=== PATIENT | female | born 1970 | race Caucasian/White ===

== ENCOUNTER 2019-02-26 05:43 | Inpatient (IN) | payer OTHER ==
[~2019-02-26] VITALS: Ht 157.5 cm; Wt 83.3 kg
[~2019-02-26 05:43] MED LIST: ALBU8HFA IH; ASPI-556 PO; ATOR40TA28 PO; AZIT250T9 PO; BUME1TAB17 PO; BUSP10TA23 PO; CARV3 PO; CEPH-582 PO; INSLAN SQ; LEVO200 PO; METF-960 PO; MOME13HF IH; OMEP20 PO; PRED10TA3 PO; PRED20TA3 PO; PRED5TAB PO; UMEC62.5 IH
[2019-02-26 06:05] LABS: GLUCOSE,POINT OF CARE 293 MG/DL (70-110)
[2019-02-26 07:11] LABS: BASOPHILS % (AUTO) 1.5 % (0.0-2.0); EOSINOPHILS % (AUTO) 1.5 % (1.0-6.0); HEMATOCRIT 41.8 % (36-46); HEMOGLOBIN 13.5 g/dL (12.0-16.0); LYMPHOCYTES # (AUTO) 1.5 K/uL (1.0-4.8); LYMPHOCYTES % (AUTO) 25.2 % (22.0-44.0); MEAN CORPUSCULAR HEMOGLOBIN 26.3 pg (26.0-34.0); MEAN CORPUSCULAR HGB CONC 32.2 G/dL (31.0-37.0); MEAN CORPUSCULAR VOLUME 82 fL (80-100); MONOCYTES # (AUTO) 0.6 K/uL (0.1-1.0); MONOCYTES % (AUTO) 9.2 % (2.0-9.0); NEUTROPHILS # (AUTO) 3.8 K/uL (1.8-7.7); NEUTROPHILS % (AUTO) 62.6 % (40.0-70.0); PLATELET COUNT (AUTO) 260 K/uL (150-450); RED BLOOD CELL COUNT(AUTO) 5.13 MIL/uL (4.00-5.20); RED CELL DISTRIBUTION WIDTH 17.3 % (11.5-14.5)
[2019-02-26] MEDS ORDERED: FUROSEMIDE 40 MG/4 ML VIAL IVP ONE (07:45)
[2019-02-26 07:49] LABS: CALCIUM, TOTAL 7.7 mg/dL (8.8-10.5); CREATININE 1.24 mg/dL (0.60-1.30); POTASSIUM 4.8 mmol/L (3.5-5.1)
[2019-02-26 07:53] LABS: ALBUMIN 3.5 g/dL (3.4-5.0); TOTAL PROTEIN, SERUM 7.6 g/dL (6.4-8.2)
[2019-02-26] MEDS: DOCUSATE SODIUM 100 MG CAPSULE PO SCH ×2 (08:43→21:00)
[2019-02-26] MEDS: FAMOTIDINE 20 MG TABLET PO SCH (08:43)
[2019-02-26] MEDS ORDERED: MAGNESIUM HYDROXIDE SUSPENSION 30 ML UDCUP PO PRN (08:45)
[2019-02-26] MEDS ORDERED: ACETAMINOPHEN 325 MG TABLET PO PRN ×2 (08:45)
[2019-02-26] MEDS ORDERED: ONDANSETRON HCL 4 MG/2 ML VIAL IVP PRN (08:45)
[2019-02-26] MEDS ORDERED: ALBUTEROL SULFATE 2.5 MG/0.5 ML NEB SOLUTION NEB PRN (08:45)
[2019-02-26 08:59] LABS: GLUCOSE,POINT OF CARE 299 MG/DL (70-110)
[2019-02-26] MEDS ORDERED: DEXTROSE 50%-WATER 25 GM/50 ML SYRINGE IVP PRN (09:30)
[2019-02-26 10:42] LABS: GLUCOSE,POINT OF CARE 292 MG/DL (70-110)
[2019-02-26 11:39] VITALS: BP 133/94
[2019-02-26] MEDS ORDERED: LORazepam 2 MG TABLET PO PRN (12:30)
[2019-02-26] MEDS: CARVEDILOL 6.25 MG TABLET PO SCH ×2 (12:40→21:00)
[2019-02-26] MEDS: ASPIRIN 81 MG CHEWABLE TABLET PO SCH (12:40)
[2019-02-26] MEDS: INSULIN LISPRO 100 UNITS/ML SQ PRN (12:41)
[2019-02-26 15:51] VITALS: BP 105/50
[2019-02-26] MEDS: HEPARIN SODIUM,PORCINE 5,000 UNITS/ML VIAL SQ SCH (16:54)
[2019-02-26] MEDS ORDERED: FLUMAZENIL 0.1 MG/ML 5 ML VIAL IVP ONE (18:30)
[2019-02-26] MEDS ORDERED: FLUMAZENIL 0.1 MG/ML 5 ML VIAL IVP PRN (18:45)
[2019-02-26 20:01] VITALS: BP 123/80
[2019-02-26 20:05] LABS: GLUCOMETER DEV NAME(LOC) 5N.1; GLUCOSE,POINT OF CARE 161 MG/DL (70-110)
[2019-02-26 20:05] LABS: GLUCOMETER DEV NAME(LOC) 5N.1; GLUCOSE,POINT OF CARE 293 MG/DL (70-110)
[2019-02-26] MEDS: INSULIN GLARGINE,HUM.REC.ANLOG 100 UNITS/ML SQ SCH (21:00)
[2019-02-26 21:44] LABS: GLUCOMETER DEV NAME(LOC) 5N.1; GLUCOSE,POINT OF CARE 214 MG/DL (70-110)
[2019-02-26 23:10] VITALS: BP 107/77
[2019-02-26 23:57] VITALS: BP 137/75
[2019-02-27] VITALS (11 sets, daily range): BP systolic 88–152; BP diastolic 40–82
[2019-02-27 01:25] LABS: AMPHET/METH SCREEN,URINE POSITIVE (NEGATIVE); BARBITURATE SCREEN, URINE NEGATIVE (NEGATIVE); BENZODIAZEPINES SCREEN,URINE NEGATIVE (NEGATIVE); CANNABINOID SCREEN,URINE NEGATIVE (NEGATIVE); COCAINE SCREEN,URINE NEGATIVE (NEGATIVE); METHADONE SCREEN, URINE NEGATIVE (NEGATIVE); OPIATE SCREEN,URINE NEGATIVE (NEGATIVE); PHENCYCLIDINE SCREEN,URINE NEGATIVE (NEGATIVE)
[2019-02-27] MEDS: INSULIN LISPRO 100 UNITS/ML SQ PRN ×4 (05:52→20:29)
[2019-02-27 06:05] LABS: BASOPHILS % (AUTO) 1.4 % (0.0-2.0); EOSINOPHILS % (AUTO) 0.6 % (1.0-6.0); HEMATOCRIT 42.1 % (36-46); HEMOGLOBIN 13.7 g/dL (12.0-16.0); LYMPHOCYTES # (AUTO) 1.3 K/uL (1.0-4.8); LYMPHOCYTES % (AUTO) 18.3 % (22.0-44.0); MEAN CORPUSCULAR HEMOGLOBIN 26.7 pg (26.0-34.0); MEAN CORPUSCULAR HGB CONC 32.6 G/dL (31.0-37.0); MEAN CORPUSCULAR VOLUME 82 fL (80-100); MONOCYTES # (AUTO) 0.5 K/uL (0.1-1.0); MONOCYTES % (AUTO) 7.1 % (2.0-9.0); NEUTROPHILS # (AUTO) 5.1 K/uL (1.8-7.7); NEUTROPHILS % (AUTO) 72.6 % (40.0-70.0); PLATELET COUNT (AUTO) 262 K/uL (150-450); RED BLOOD CELL COUNT(AUTO) 5.14 MIL/uL (4.00-5.20); RED CELL DISTRIBUTION WIDTH 17.7 % (11.5-14.5)
[2019-02-27 06:14] LABS: ALBUMIN 3.3 g/dL (3.4-5.0); BILIRUBIN,TOTAL 1.7 mg/dL (0.1-1.0); CALCIUM, TOTAL 8.7 mg/dL (8.8-10.5); CREATININE 1.41 mg/dL (0.60-1.30); MAGNESIUM 1.5 mg/dL (1.80-2.40); POTASSIUM 4.2 mmol/L (3.5-5.1); TOTAL PROTEIN, SERUM 7.2 g/dL (6.4-8.2)
[2019-02-27 06:59] LABS: GLUCOMETER DEV NAME(LOC) 5N.1; GLUCOSE,POINT OF CARE 292 MG/DL (70-110)
[2019-02-27] MEDS ORDERED: MAGNESIUM OXIDE 400 MG TABLET PO ONE (08:30)
[2019-02-27] MEDS: DOCUSATE SODIUM 100 MG CAPSULE PO SCH ×2 (09:00→20:29)
[2019-02-27] MEDS: HEPARIN SODIUM,PORCINE 5,000 UNITS/ML VIAL SQ SCH ×4 (09:17→23:36)
[2019-02-27] MEDS: CARVEDILOL 6.25 MG TABLET PO SCH ×2 (09:18→20:29)
[2019-02-27] MEDS: LISINOPRIL 5 MG TABLET PO SCH (09:18)
[2019-02-27] MEDS: FAMOTIDINE 20 MG TABLET PO SCH (09:18)
[2019-02-27] MEDS: ATORVASTATIN CALCIUM 20 MG TABLET PO SCH (09:18)
[2019-02-27] MEDS: ASPIRIN 81 MG CHEWABLE TABLET PO SCH (09:18)
[2019-02-27] MEDS: BUMETANIDE 0.25 MG/ML 4 ML VIAL IVP SCH (09:23)
[2019-02-27 12:29] LABS: GLUCOMETER DEV NAME(LOC) 5N.1; GLUCOSE,POINT OF CARE 248 MG/DL (70-110)
[2019-02-27] MEDS: FUROSEMIDE 20 MG/2 ML VIAL IVP SCH ×2 (13:14→18:09)
[2019-02-27] MEDS: INSULIN GLARGINE,HUM.REC.ANLOG 100 UNITS/ML SQ SCH (20:28)
[2019-02-28] VITALS (10 sets, daily range): BP systolic 108–128; BP diastolic 56–88
[2019-02-28] MEDS: FUROSEMIDE 20 MG/2 ML VIAL IVP SCH ×5 (00:12→22:12)
[2019-02-28] MEDS: INSULIN LISPRO 100 UNITS/ML SQ PRN ×4 (05:50→22:22)
[2019-02-28 06:14] LABS: CALCIUM, TOTAL 8.4 mg/dL (8.8-10.5); CREATININE 1.37 mg/dL (0.60-1.30); MAGNESIUM 1.2 mg/dL (1.80-2.40); POTASSIUM 3.4 mmol/L (3.5-5.1)
[2019-02-28 07:40] LABS: GLUCOMETER DEV NAME(LOC) 5N.1; GLUCOSE,POINT OF CARE 368 MG/DL (70-110)
[2019-02-28 07:40] LABS: GLUCOMETER DEV NAME(LOC) 5N.1; GLUCOSE,POINT OF CARE 245 MG/DL (70-110)
[2019-02-28 07:40] LABS: GLUCOMETER DEV NAME(LOC) 5N.1; GLUCOSE,POINT OF CARE 319 MG/DL (70-110)
[2019-02-28] MEDS ORDERED: MAGNESIUM SULFATE 4 GM/WATER 100 ML IV PRN (08:30)
[2019-02-28] MEDS ORDERED: MAGNESIUM OXIDE 400 MG TABLET PO PRN (08:30)
[2019-02-28] MEDS ORDERED: MAGNESIUM SULFATE 2 GM/WATER 50 ML IV PRN (08:30)
[2019-02-28] MEDS ORDERED: MAGNESIUM SULFATE 3 GM in DEXTROSE 5%-WATER 100 ML IV ONE (09:00)
[2019-02-28] MEDS: HEPARIN SODIUM,PORCINE 5,000 UNITS/ML VIAL SQ SCH ×3 (09:02→22:12)
[2019-02-28] MEDS: ATORVASTATIN CALCIUM 20 MG TABLET PO SCH (09:02)
[2019-02-28] MEDS: LISINOPRIL 5 MG TABLET PO SCH (09:02)
[2019-02-28] MEDS: CARVEDILOL 6.25 MG TABLET PO SCH ×2 (09:03→20:47)
[2019-02-28] MEDS: ASPIRIN 81 MG CHEWABLE TABLET PO SCH (09:03)
[2019-02-28] MEDS: FAMOTIDINE 20 MG TABLET PO SCH (09:07)
[2019-02-28] MEDS: DOCUSATE SODIUM 100 MG CAPSULE PO SCH ×2 (09:07→20:48)
[2019-02-28] MEDS: BUMETANIDE 0.25 MG/ML 4 ML VIAL IVP SCH (09:07)
[2019-02-28] MEDS ORDERED: SODIUM CHLORIDE 0.9% 250 ML IV ONE (10:17)
[2019-02-28 12:39] LABS: GLUCOMETER DEV NAME(LOC) 5N.1; GLUCOSE,POINT OF CARE 345 MG/DL (70-110)
[2019-02-28] MEDS: POTASSIUM CHL 10 MEQ/WATER 50 ML IV SCH ×2 (15:38→17:35)
[2019-02-28] MEDS ORDERED: INSULIN GLARGINE,HUM.REC.ANLOG 100 UNITS/ML SQ SCH (21:00)
[2019-03-01 02:14] LABS: GLUCOMETER DEV NAME(LOC) 5N.1; GLUCOSE,POINT OF CARE 338 MG/DL (70-110)
[2019-03-01 04:39] VITALS: BP 132/98
[2019-03-01 06:03] LABS: BASOPHILS % (AUTO) 0.8 % (0.0-2.0); HEMATOCRIT 41.2 % (36-46); HEMOGLOBIN 13.2 g/dL (12.0-16.0); LYMPHOCYTES # (AUTO) 1.1 K/uL (1.0-4.8); LYMPHOCYTES % (AUTO) 25.9 % (22.0-44.0); MEAN CORPUSCULAR HEMOGLOBIN 26.4 pg (26.0-34.0); MEAN CORPUSCULAR HGB CONC 31.9 G/dL (31.0-37.0); MEAN CORPUSCULAR VOLUME 83 fL (80-100); MONOCYTES # (AUTO) 0.6 K/uL (0.1-1.0); MONOCYTES % (AUTO) 14.9 % (2.0-9.0); NEUTROPHILS # (AUTO) 2.4 K/uL (1.8-7.7); NEUTROPHILS % (AUTO) 57.4 % (40.0-70.0); PLATELET COUNT (AUTO) 213 K/uL (150-450); RED BLOOD CELL COUNT(AUTO) 4.98 MIL/uL (4.00-5.20); RED CELL DISTRIBUTION WIDTH 17.2 % (11.5-14.5)
[2019-03-01] MEDS: FUROSEMIDE 20 MG/2 ML VIAL IVP SCH ×2 (06:10→12:31)
[2019-03-01] MEDS: INSULIN LISPRO 100 UNITS/ML SQ PRN ×2 (06:14→12:35)
[2019-03-01 06:18] LABS: ALANINE AMINOTRANSFERASE 28 U/L (12-78); ALBUMIN 2.9 g/dL (3.4-5.0); ALKALINE PHOSPHATASE 166 U/L (46-116); ANION GAP 7 mmol/L (8-16); ASPARTATE AMINOTRANSFERASE 30 U/L (15-37); BILIRUBIN,TOTAL 0.7 mg/dL (0.1-1.0); CALCIUM, TOTAL 8.1 mg/dL (8.8-10.5); CARBON DIOXIDE 30 mmol/L (22-29); CHLORIDE 97 mmol/L (98-107); CREATININE 0.98 mg/dL (0.60-1.30); GLOMERULAR FILTR. RATE CALC > 60 mL/min (>60); GLUCOSE,RANDOM 371 mg/dL (70-110); POTASSIUM 3.1 mmol/L (3.5-5.1); SODIUM SERUM 134 mmol/L (136-145); TOTAL PROTEIN, SERUM 6.6 g/dL (6.4-8.2); UREA NITROGEN, BLOOD 22 mg/dL (7-18)
[2019-03-01 06:44] LABS: GLUCOMETER DEV NAME(LOC) 5N.1; GLUCOSE,POINT OF CARE 372 MG/DL (70-110)
[2019-03-01 07:30] VITALS: BP 115/75
[2019-03-01] MEDS ORDERED: POTASSIUM CHL 10 MEQ/WATER 50 ML IV PRN (07:30)
[2019-03-01] MEDS: HEPARIN SODIUM,PORCINE 5,000 UNITS/ML VIAL SQ SCH (08:00)
[2019-03-01] MEDS: ASPIRIN 81 MG CHEWABLE TABLET PO SCH (08:49)
[2019-03-01] MEDS: BUMETANIDE 0.25 MG/ML 4 ML VIAL IVP SCH (08:49)
[2019-03-01] MEDS: ATORVASTATIN CALCIUM 20 MG TABLET PO SCH (08:50)
[2019-03-01] MEDS: CARVEDILOL 6.25 MG TABLET PO SCH (08:50)
[2019-03-01] MEDS: POTASSIUM CHLORIDE 20 MEQ ER TABLET PO PRN ×2 (08:51→15:11)
[2019-03-01] MEDS ORDERED: SODIUM CHLORIDE 0.9% 250 ML IV ONE (09:19)
[2019-03-01] MEDS: LISINOPRIL 5 MG TABLET PO SCH (09:22)
[2019-03-01] MEDS: DOCUSATE SODIUM 100 MG CAPSULE PO SCH (09:22)
[2019-03-01] MEDS: FAMOTIDINE 20 MG TABLET PO SCH (09:22)
[2019-03-01 10:34] LABS: GLUCOMETER DEV NAME(LOC) 5S.3; GLUCOSE,POINT OF CARE 382 MG/DL (70-110)
[2019-03-01 11:05] VITALS: BP 116/83
[2019-03-01 11:55] LABS: GLUCOMETER DEV NAME(LOC) 5N.1; GLUCOSE,POINT OF CARE 208 MG/DL (70-110)
[2019-03-01] MEDS ORDERED: LISI-660 PO (13:48)
== END 2019-03-01 16:00 | disposition home or self-care (01) | DRG 194 ==
LOC: EMS 05:43 → 5S 10:01
PROVIDERS: ADMIT Internal Medicine; ATTEND Internal Medicine
PROC: 4B02XTZ Measurement of Cardiac Defibrillator, External Approach (ICD-10-PCS; principal; 2019-02-27)
DX: I13.0 Hypertensive heart and chronic kidney disease with heart failure and stage 1 through stage 4 chronic kidney disease, or unspecified chronic kidney disease (principal); N17.9 Acute kidney failure, unspecified; E11.22 Type 2 diabetes mellitus with diabetic chronic kidney disease; E11.65 Type 2 diabetes mellitus with hyperglycemia; I50.43 Acute on chronic combined systolic (congestive) and diastolic (congestive) heart failure; I42.0 Dilated cardiomyopathy; E83.42 Hypomagnesemia; E87.1 Hypo-osmolality and hyponatremia; E87.6 Hypokalemia; E03.9 Hypothyroidism, unspecified; E78.5 Hyperlipidemia, unspecified; N18.2 Chronic kidney disease, stage 2 (mild); F15.10 Other stimulant abuse, uncomplicated; F41.9 Anxiety disorder, unspecified; D64.9 Anemia, unspecified; E78.00 Pure hypercholesterolemia, unspecified; F32.9 Major depressive disorder, single episode, unspecified; F17.210 Nicotine dependence, cigarettes, uncomplicated; Z91.19 Patient's noncompliance with other medical treatment and regimen; Z88.6 Allergy status to analgesic agent; Z90.49 Acquired absence of other specified parts of digestive tract; Z79.899 Other long term (current) drug therapy; Z79.82 Long term (current) use of aspirin; Z79.4 Long term (current) use of insulin; Z95.0 Presence of cardiac pacemaker; Z79.890 Hormone replacement therapy; Z79.84 Long term (current) use of oral hypoglycemic drugs
CPT/HCPCS: 80307; 83735; 84132; 93005; 93306; 94640; 96374; G0378; J1644; J1815; J1940; J3475; J3480; J3490; J7050; J7060

== ENCOUNTER 2019-03-11 16:11 | Inpatient (IN) | payer OTHER ==
[~2019-03-11] VITALS: Ht 157.5 cm; Wt 81.6 kg
[~2019-03-11 16:11] MED LIST changes: -AZIT250T9 PO; -BUME1TAB17 PO; +BUME1TAB34 PO; -BUSP10TA23 PO; -CEPH-582 PO; +LISI-660 PO; -PRED10TA3 PO; -PRED20TA3 PO; -PRED5TAB PO
[2019-03-11 16:30] LABS: GLUCOSE,POINT OF CARE 434 MG/DL (70-110)
[2019-03-11] MEDS ORDERED: CARV6 PO (17:11)
[2019-03-11] MEDS ORDERED: FUROSEMIDE 40 MG/4 ML VIAL IVP ONE (17:15)
[2019-03-11] MEDS ORDERED: LORazepam 2 MG/ML VIAL IVP ONE (17:15)
[2019-03-11 17:17] LABS: BASOPHILS % (AUTO) 0.5 % (0.0-2.0); EOSINOPHILS % (AUTO) 1.3 % (1.0-6.0); HEMATOCRIT 39.6 % (36-46); HEMOGLOBIN 12.5 g/dL (12.0-16.0); MEAN CORPUSCULAR HEMOGLOBIN 26.1 pg (26.0-34.0); MEAN CORPUSCULAR HGB CONC 31.5 G/dL (31.0-37.0); MEAN CORPUSCULAR VOLUME 83 fL (80-100); MONOCYTES # (AUTO) 0.5 K/uL (0.1-1.0); MONOCYTES % (AUTO) 9.6 % (2.0-9.0); NEUTROPHILS # (AUTO) 3.9 K/uL (1.8-7.7); NEUTROPHILS % (AUTO) 70.6 % (40.0-70.0); PLATELET COUNT (AUTO) 186 K/uL (150-450); RED BLOOD CELL COUNT(AUTO) 4.78 MIL/uL (4.00-5.20); RED CELL DISTRIBUTION WIDTH 17.7 % (11.5-14.5)
[2019-03-11 17:33] LABS: PROTHROMBIN TIME 10.5 SEC (9.4-11.6)
[2019-03-11 17:53] LABS: ALBUMIN 3.3 g/dL (3.4-5.0); BILIRUBIN,TOTAL 0.7 mg/dL (0.1-1.0); CALCIUM, TOTAL 8.9 mg/dL (8.8-10.5); CREATININE 1.39 mg/dL (0.60-1.30); POTASSIUM 3.6 mmol/L (3.5-5.1); TOTAL PROTEIN, SERUM 7.1 g/dL (6.4-8.2)
[2019-03-11] MEDS ORDERED: INSULIN REGULAR, HUMAN 100 UNITS/ML SQ ONE (18:15)
[2019-03-11] MEDS ORDERED: ONDANSETRON HCL 4 MG/2 ML VIAL IVP PRN ×2 (18:45→22:45)
[2019-03-11] MEDS ORDERED: 0.9% SODIUM CHLORIDE 10 ML SYRINGE IVP PRN ×2 (18:45→22:45)
[2019-03-11] MEDS ORDERED: ACETAMINOPHEN 325 MG TABLET PO PRN (18:45)
[2019-03-11 20:17] LABS: APPEARANCE,URINE CLEAR (CLEAR); BILIRUBIN,URINE NEGATIVE (NEGATIVE); GLUCOSE, URINE (UA) 500 mg/dL (NEGATIVE); KETONES,URINE NEGATIVE (NEGATIVE); LEUKOCYTE ESTERASE ,URINE NEGATIVE (NEGATIVE); NITRATE,URINE NEGATIVE (NEGATIVE); OCCULT BLOOD,URINE NEGATIVE (NEGATIVE); PROTEIN,URINE POS 1+ (NEGATIVE); UROBILINOGEN,URINE 0.2 mg/dL (<=1.0)
[2019-03-11 20:32] LABS: AMPHET/METH SCREEN,URINE NEGATIVE (NEGATIVE); BACTERIA,URINE None Seen /HPF (None Seen); BARBITURATE SCREEN, URINE NEGATIVE (NEGATIVE); BENZODIAZEPINES SCREEN,URINE NEGATIVE (NEGATIVE); CANNABINOID SCREEN,URINE NEGATIVE (NEGATIVE); COCAINE SCREEN,URINE NEGATIVE (NEGATIVE); METHADONE SCREEN, URINE NEGATIVE (NEGATIVE); OPIATE SCREEN,URINE NEGATIVE (NEGATIVE); RBC,URINE None Seen /HPF (0-2); SQUAMOUS EPITHELIAL CELL,UR Rare /LPF (None Seen); WBC,URINE None Seen /HPF (0-5)
[2019-03-11 20:36] LABS: PHENCYCLIDINE SCREEN,URINE NEGATIVE (NEGATIVE)
[2019-03-11] MEDS ORDERED: ZOLPIDEM TARTRATE 5 MG TABLET PO PRN (22:45)
[2019-03-11] MEDS ORDERED: GLUCAGON,HUMAN RECOMBINANT 1 MG VIAL IM PRN (22:45)
[2019-03-11] MEDS ORDERED: IPRATROPIUM BROMIDE 0.5 MG/2.5 ML NEB SOLUTION NEB PRN (22:45)
[2019-03-11] MEDS ORDERED: ALBUTEROL SULFATE 2.5 MG/0.5 ML NEB SOLUTION NEB PRN (22:45)
[2019-03-11] MEDS ORDERED: INSULIN LISPRO 100 UNITS/ML SQ PRN (22:45)
[2019-03-11] MEDS ORDERED: DEXTROSE 50%-WATER 25 GM/50 ML SYG IVP PRN (23:00)
[2019-03-12 00:44] VITALS: BP 137/91
[2019-03-12] MEDS: CARVEDILOL 6.25 MG TABLET PO SCH ×3 (01:08→21:04)
[2019-03-12] MEDS: INSULIN GLARGINE,HUM.REC.ANLOG 100 UNITS/ML SQ SCH ×2 (01:13→21:05)
[2019-03-12] MEDS: INSULIN LISPRO 100 UNITS/ML SQ PRN ×5 (01:14→21:05)
[2019-03-12] MEDS: ALBUTEROL SULFATE 2.5 MG/0.5 ML NEB SOLUTION NEB SCH ×4 (02:00→19:45)
[2019-03-12] MEDS: HYDROmorphone 2 MG/ML SYRINGE IVP SCH ×3 (02:00→04:00)
[2019-03-12] MEDS: IPRATROPIUM BROMIDE 0.5 MG/2.5 ML NEB SOLUTION NEB SCH ×4 (02:00→19:45)
[2019-03-12 04:05] VITALS: BP 134/97
[2019-03-12] MEDS ORDERED: PNEUMOCOCCAL VACCINE POLYVALENT 0.5 ML VIAL [PPSV23] IM ONE (05:45)
[2019-03-12 05:47] LABS: BASOPHILS % (AUTO) 0.9 % (0.0-2.0); EOSINOPHILS % (AUTO) 1.7 % (1.0-6.0); HEMATOCRIT 39.9 % (36-46); HEMOGLOBIN 12.8 g/dL (12.0-16.0); LYMPHOCYTES # (AUTO) 1.1 K/uL (1.0-4.8); LYMPHOCYTES % (AUTO) 24.4 % (22.0-44.0); MEAN CORPUSCULAR HEMOGLOBIN 26.5 pg (26.0-34.0); MEAN CORPUSCULAR HGB CONC 32.1 G/dL (31.0-37.0); MEAN CORPUSCULAR VOLUME 83 fL (80-100); MONOCYTES # (AUTO) 0.3 K/uL (0.1-1.0); MONOCYTES % (AUTO) 7.5 % (2.0-9.0); NEUTROPHILS # (AUTO) 2.9 K/uL (1.8-7.7); NEUTROPHILS % (AUTO) 65.5 % (40.0-70.0); PLATELET COUNT (AUTO) 183 K/uL (150-450); RED BLOOD CELL COUNT(AUTO) 4.84 MIL/uL (4.00-5.20); RED CELL DISTRIBUTION WIDTH 17.9 % (11.5-14.5)
[2019-03-12 06:08] LABS: ALBUMIN 3.2 g/dL (3.4-5.0); BILIRUBIN,TOTAL 0.5 mg/dL (0.1-1.0); CALCIUM, TOTAL 8.5 mg/dL (8.8-10.5); CREATININE 1.19 mg/dL (0.60-1.30); MAGNESIUM 1.1 mg/dL (1.80-2.40); POTASSIUM 3.6 mmol/L (3.5-5.1); TOTAL PROTEIN, SERUM 7.2 g/dL (6.4-8.2)
[2019-03-12 06:30] VITALS: BP 119/80
[2019-03-12 07:10] LABS: GLUCOMETER DEV NAME(LOC) 5S.1; GLUCOSE,POINT OF CARE 250 MG/DL (70-110)
[2019-03-12] MEDS: LEVOTHYROXINE SODIUM 200 MCG TABLET PO SCH (07:28)
[2019-03-12 08:14] VITALS: BP 144/78
[2019-03-12] MEDS ORDERED: LORazepam 2 MG TABLET PO PRN (08:30)
[2019-03-12] MEDS ORDERED: MAGNESIUM OXIDE 400 MG TABLET PO PRN (08:30)
[2019-03-12] MEDS ORDERED: MAGNESIUM SULFATE 2 GM/WATER 50 ML IV PRN (08:30)
[2019-03-12] MEDS: MetFORMIN HCL 500 MG TABLET PO SCH ×2 (08:47→17:42)
[2019-03-12] MEDS: LISINOPRIL 5 MG TABLET PO SCH (08:48)
[2019-03-12] MEDS: ASPIRIN 81 MG EC TABLET PO SCH (08:48)
[2019-03-12] MEDS: ATORVASTATIN CALCIUM 40 MG TABLET PO SCH (08:48)
[2019-03-12] MEDS: OMEPRAZOLE 20 MG CAPSULE PO SCH (08:48)
[2019-03-12] MEDS: ENOXAPARIN SODIUM 40 MG/0.4 ML PF SYRINGE SQ SCH (08:49)
[2019-03-12] MEDS: BUMETANIDE 0.25 MG/ML 4 ML VIAL IVP SCH ×3 (08:49→21:04)
[2019-03-12] MEDS ORDERED: PANTOPRAZOLE SODIUM 40 MG DR TABLET PO SCH (09:00)
[2019-03-12 11:26] VITALS: BP 128/87
[2019-03-12 13:44] LABS: GLUCOMETER DEV NAME(LOC) 5S.1; GLUCOSE,POINT OF CARE 258 MG/DL (70-110)
[2019-03-12] MEDS ORDERED: SODIUM CHLORIDE 0.9% 100 ML ONE (16:37)
[2019-03-12] MEDS: MAGNESIUM SULFATE 4 GM/WATER 100 ML IV PRN (16:46)
[2019-03-12 20:24] VITALS: BP 154/87
[2019-03-13] VITALS (7 sets, daily range): BP systolic 98–148; BP diastolic 60–86
[2019-03-13 00:12] LABS: GLUCOMETER DEV NAME(LOC) 5S.1; GLUCOSE,POINT OF CARE 197 MG/DL (70-110)
[2019-03-13] MEDS: ALBUTEROL SULFATE 2.5 MG/0.5 ML NEB SOLUTION NEB SCH ×4 (02:00→19:11)
[2019-03-13] MEDS: IPRATROPIUM BROMIDE 0.5 MG/2.5 ML NEB SOLUTION NEB SCH ×4 (02:00→19:11)
[2019-03-13 05:44] LABS: BASOPHILS % (AUTO) 0.6 % (0.0-2.0); EOSINOPHILS % (AUTO) 1.7 % (1.0-6.0); HEMATOCRIT 39.9 % (36-46); HEMOGLOBIN 12.7 g/dL (12.0-16.0); LYMPHOCYTES # (AUTO) 0.9 K/uL (1.0-4.8); LYMPHOCYTES % (AUTO) 15.5 % (22.0-44.0); MEAN CORPUSCULAR HEMOGLOBIN 26.3 pg (26.0-34.0); MEAN CORPUSCULAR HGB CONC 31.9 G/dL (31.0-37.0); MEAN CORPUSCULAR VOLUME 82 fL (80-100); MONOCYTES # (AUTO) 0.5 K/uL (0.1-1.0); MONOCYTES % (AUTO) 8.4 % (2.0-9.0); NEUTROPHILS # (AUTO) 4.4 K/uL (1.8-7.7); NEUTROPHILS % (AUTO) 73.8 % (40.0-70.0); PLATELET COUNT (AUTO) 198 K/uL (150-450); RED BLOOD CELL COUNT(AUTO) 4.85 MIL/uL (4.00-5.20); RED CELL DISTRIBUTION WIDTH 17.9 % (11.5-14.5)
[2019-03-13 06:03] LABS: CALCIUM, TOTAL 8.5 mg/dL (8.8-10.5); CREATININE 1.07 mg/dL (0.60-1.30); MAGNESIUM 1.5 mg/dL (1.80-2.40); POTASSIUM 3.7 mmol/L (3.5-5.1)
[2019-03-13] MEDS: LEVOTHYROXINE SODIUM 200 MCG TABLET PO SCH (06:42)
[2019-03-13] MEDS: INSULIN LISPRO 100 UNITS/ML SQ PRN ×4 (06:47→21:21)
[2019-03-13 07:54] LABS: GLUCOMETER DEV NAME(LOC) 5S.1; GLUCOSE,POINT OF CARE 159 MG/DL (70-110)
[2019-03-13] MEDS: BUMETANIDE 0.25 MG/ML 4 ML VIAL IVP SCH ×3 (09:32→21:23)
[2019-03-13] MEDS: MetFORMIN HCL 500 MG TABLET PO SCH ×2 (09:34→17:52)
[2019-03-13] MEDS: CARVEDILOL 6.25 MG TABLET PO SCH ×2 (09:35→21:21)
[2019-03-13] MEDS: ATORVASTATIN CALCIUM 40 MG TABLET PO SCH (09:35)
[2019-03-13] MEDS: LISINOPRIL 5 MG TABLET PO SCH (09:35)
[2019-03-13] MEDS: OMEPRAZOLE 20 MG CAPSULE PO SCH (09:35)
[2019-03-13] MEDS: ASPIRIN 81 MG EC TABLET PO SCH (09:35)
[2019-03-13] MEDS: ENOXAPARIN SODIUM 40 MG/0.4 ML PF SYRINGE SQ SCH (09:35)
[2019-03-13 12:39] LABS: GLUCOMETER DEV NAME(LOC) 5S.1; GLUCOSE,POINT OF CARE 160 MG/DL (70-110)
[2019-03-13 14:15] LABS: ABG A-A DIFF O2 27.6 mmHg (10-20.0); ABG CARBOXYHEMOGLOBIN 0.5 % (0.0-1.5); ABG HCO3 24.4 mmol/L (22.0-26.0); ABG METHEMOGLOBIN 0.3 % (0.0-1.5); ABG OXYGEN CONTENT 18.9 mL/dL (15.0-23.0); ABG OXYGEN SATURATION 98.1 % (95.0-98.0); ABG OXYHEMOGLOBIN 97.3 % (94.0-100.0); ABG PCO2 32 mmHg (35-45); ABG PH 7.466 (7.35-7.450); ABG TOTAL HEMOGLOBIN 13.7 G/dL (12.0-18.0); PO2, ARTERIAL BG 105.1 mmHg (88.0-96.0); SOURCE, BLOOD GAS ARTERIAL; TEMPERATURE, FAHRENHEIT, BG 98.6 FAHREN (96.0-98.6)
[2019-03-13 14:16] LABS: O2 DEVICE,BLOOD GAS CANNULA (ROOM AIR); SITE, BLOOD GAS RT RADIAL
[2019-03-13 19:09] LABS: GLUCOMETER DEV NAME(LOC) 5S.1; GLUCOSE,POINT OF CARE 167 MG/DL (70-110)
[2019-03-13] MEDS: INSULIN GLARGINE,HUM.REC.ANLOG 100 UNITS/ML SQ SCH (21:20)
[2019-03-14] VITALS (7 sets, daily range): BP systolic 102–119; BP diastolic 52–76
[2019-03-14] MEDS: ALBUTEROL SULFATE 2.5 MG/0.5 ML NEB SOLUTION NEB SCH ×4 (02:00→19:43)
[2019-03-14] MEDS: IPRATROPIUM BROMIDE 0.5 MG/2.5 ML NEB SOLUTION NEB SCH ×4 (02:00→19:43)
[2019-03-14] MEDS: LEVOTHYROXINE SODIUM 200 MCG TABLET PO SCH (06:26)
[2019-03-14] MEDS: INSULIN LISPRO 100 UNITS/ML SQ PRN ×4 (06:27→21:25)
[2019-03-14 07:45] LABS: GLUCOMETER DEV NAME(LOC) 5S.1; GLUCOSE,POINT OF CARE 238 MG/DL (70-110)
[2019-03-14 07:45] LABS: GLUCOMETER DEV NAME(LOC) 5S.1; GLUCOSE,POINT OF CARE 230 MG/DL (70-110)
[2019-03-14] MEDS: MetFORMIN HCL 500 MG TABLET PO SCH ×2 (09:02→17:42)
[2019-03-14] MEDS: ENOXAPARIN SODIUM 40 MG/0.4 ML PF SYRINGE SQ SCH (09:02)
[2019-03-14] MEDS: BUMETANIDE 0.25 MG/ML 4 ML VIAL IVP SCH ×3 (09:02→20:31)
[2019-03-14] MEDS: ASPIRIN 81 MG EC TABLET PO SCH (09:03)
[2019-03-14] MEDS: ATORVASTATIN CALCIUM 40 MG TABLET PO SCH (09:03)
[2019-03-14] MEDS: OMEPRAZOLE 20 MG CAPSULE PO SCH (09:03)
[2019-03-14] MEDS: CARVEDILOL 6.25 MG TABLET PO SCH ×2 (10:01→20:31)
[2019-03-14] MEDS: LISINOPRIL 5 MG TABLET PO SCH (10:01)
[2019-03-14 11:50] LABS: CALCIUM, TOTAL 8.1 mg/dL (8.8-10.5); CREATININE 1.17 mg/dL (0.60-1.30); MAGNESIUM 1.2 mg/dL (1.80-2.40); POTASSIUM 3.4 mmol/L (3.5-5.1)
[2019-03-14] MEDS: MAGNESIUM SULFATE 4 GM/WATER 100 ML IV PRN (13:15)
[2019-03-14] MEDS ORDERED: POTASSIUM CHLORIDE 20 MEQ ER TABLET PO PRN (15:00)
[2019-03-14 17:54] LABS: GLUCOMETER DEV NAME(LOC) 5S.1; GLUCOSE,POINT OF CARE 170 MG/DL (70-110)
[2019-03-14] MEDS: NEOMYCIN/BACITRACIN/POLYMYXIN B 30 GM OINTMENT TP SCH (20:31)
[2019-03-14] MEDS: INSULIN GLARGINE,HUM.REC.ANLOG 100 UNITS/ML SQ SCH (21:24)
[2019-03-14 23:14] LABS: GLUCOMETER DEV NAME(LOC) 5N.2; GLUCOSE,POINT OF CARE 198 MG/DL (70-110)
[2019-03-15] MEDS: ALBUTEROL SULFATE 2.5 MG/0.5 ML NEB SOLUTION NEB SCH ×4 (01:21→20:10)
[2019-03-15] MEDS: IPRATROPIUM BROMIDE 0.5 MG/2.5 ML NEB SOLUTION NEB SCH ×4 (01:21→20:10)
[2019-03-15 04:36] VITALS: BP 113/73
[2019-03-15] MEDS: LEVOTHYROXINE SODIUM 200 MCG TABLET PO SCH (06:30)
[2019-03-15] MEDS: INSULIN LISPRO 100 UNITS/ML SQ PRN ×2 (06:32→11:46)
[2019-03-15 07:24] LABS: GLUCOMETER DEV NAME(LOC) 5S.1; GLUCOSE,POINT OF CARE 144 MG/DL (70-110)
[2019-03-15 07:39] VITALS: BP 113/78
[2019-03-15] MEDS: MetFORMIN HCL 500 MG TABLET PO SCH ×2 (08:35→18:05)
[2019-03-15] MEDS: ASPIRIN 81 MG EC TABLET PO SCH (08:35)
[2019-03-15] MEDS: ATORVASTATIN CALCIUM 40 MG TABLET PO SCH (08:35)
[2019-03-15] MEDS: OMEPRAZOLE 20 MG CAPSULE PO SCH (08:35)
[2019-03-15] MEDS: NEOMYCIN/BACITRACIN/POLYMYXIN B 30 GM OINTMENT TP SCH (08:36)
[2019-03-15] MEDS: ENOXAPARIN SODIUM 40 MG/0.4 ML PF SYRINGE SQ SCH (08:36)
[2019-03-15] MEDS: LISINOPRIL 5 MG TABLET PO SCH (09:00)
[2019-03-15] MEDS: CARVEDILOL 6.25 MG TABLET PO SCH (09:00)
[2019-03-15] MEDS: BUMETANIDE 0.25 MG/ML 4 ML VIAL IVP SCH ×2 (09:07→16:07)
[2019-03-15 11:38] VITALS: BP 115/78
[2019-03-15 12:24] LABS: GLUCOMETER DEV NAME(LOC) 5S.1; GLUCOSE,POINT OF CARE 169 MG/DL (70-110)
[2019-03-15 15:20] VITALS: BP 109/75
[2019-03-15 18:14] LABS: GLUCOMETER DEV NAME(LOC) 5S.1; GLUCOSE,POINT OF CARE 96 MG/DL (70-110)
[2019-03-15] MEDS ORDERED: BUME1TAB6 PO (20:01)
[2019-03-15 20:23] VITALS: BP 110/71
[2019-03-16 06:34] LABS: GLUCOMETER DEV NAME(LOC) 5S.3; GLUCOSE,POINT OF CARE 311 MG/DL (70-110)
[2019-03-16 06:39] LABS: GLUCOMETER DEV NAME(LOC) 5S.3; GLUCOSE,POINT OF CARE 207 MG/DL (70-110)
[2019-03-16 06:40] LABS: GLUCOMETER DEV NAME(LOC) 5S.3; GLUCOSE,POINT OF CARE 255 MG/DL (70-110)
== END 2019-03-15 21:02 | disposition home or self-care (01) | DRG 469 ==
LOC: EMS 16:11 → 5S 21:00
PROVIDERS: ADMIT Internal Medicine; ATTEND Internal Medicine
DX: N17.9 Acute kidney failure, unspecified (principal); I50.23 Acute on chronic systolic (congestive) heart failure; I11.0 Hypertensive heart disease with heart failure; I42.0 Dilated cardiomyopathy; E03.9 Hypothyroidism, unspecified; E11.9 Type 2 diabetes mellitus without complications; E78.00 Pure hypercholesterolemia, unspecified; F41.9 Anxiety disorder, unspecified; F15.10 Other stimulant abuse, uncomplicated; E78.5 Hyperlipidemia, unspecified; F17.210 Nicotine dependence, cigarettes, uncomplicated; F32.9 Major depressive disorder, single episode, unspecified; J44.9 Chronic obstructive pulmonary disease, unspecified; Z95.810 Presence of automatic (implantable) cardiac defibrillator; Z59.0 Homelessness; Z90.49 Acquired absence of other specified parts of digestive tract; Z88.5 Allergy status to narcotic agent; Z79.82 Long term (current) use of aspirin
CPT/HCPCS: 36600; 51701; 82805; 83735; 84132; 87081; 93005; 94640; 94660; 96372; 96374; 96375; G0378; J1650; J1815; J1940; J2060; J3475; J3490; J7050

== ENCOUNTER 2020-05-18 17:08 | Emergency (ER) | payer OTHER ==
[~2020-05-18] VITALS: Ht 157.5 cm; Wt 81.8 kg
[~2020-05-18 17:08] MED LIST changes: -BUME1TAB34 PO; +BUME1TAB6 PO; -CARV3 PO; +CARV6 PO
[2020-05-18] MEDS ORDERED: GLIP5 PO (17:29)
[2020-05-18] MEDS ORDERED: BUSP5TAB20 PO (17:29)
[2020-05-18] MEDS ORDERED: HYDR-4031 PO (17:29)
[2020-05-18 18:07] LABS: BASOPHILS % (AUTO) 1.4 % (0.0-2.0); EOSINOPHILS % (AUTO) 1.1 % (1.0-6.0); HEMATOCRIT 37.7 % (36-46); HEMOGLOBIN 11.9 g/dL (12.0-16.0); LYMPHOCYTES # (AUTO) 0.9 K/uL (1.0-4.8); MEAN CORPUSCULAR HEMOGLOBIN 26.1 pg (26.0-34.0); MEAN CORPUSCULAR HGB CONC 31.7 G/dL (31.0-37.0); MEAN CORPUSCULAR VOLUME 82 fL (80-100); MONOCYTES # (AUTO) 0.5 K/uL (0.1-1.0); MONOCYTES % (AUTO) 8.7 % (2.0-9.0); NEUTROPHILS % (AUTO) 72.8 % (40.0-70.0); PLATELET COUNT (AUTO) 212 K/uL (150-450); RED BLOOD CELL COUNT(AUTO) 4.58 MIL/uL (4.00-5.20); RED CELL DISTRIBUTION WIDTH 16.9 % (11.5-14.5)
[2020-05-18] MEDS ORDERED: LORazepam 1 MG TABLET PO ONE (18:30)
[2020-05-18] MEDS ORDERED: ASPI-1111 PO (18:30)
[2020-05-18 18:41] LABS: ALBUMIN 3.4 g/dL (3.4-5.0); BILIRUBIN,TOTAL 0.5 mg/dL (0.1-1.0); CALCIUM, TOTAL 8.8 mg/dL (8.8-10.5); CREATININE 1.4 mg/dL (0.60-1.30); POTASSIUM 3.9 mmol/L (3.5-5.1); TOTAL PROTEIN, SERUM 7.5 g/dL (6.4-8.2)
[2020-05-18] MEDS ORDERED: INSULIN REGULAR, HUMAN 100 UNITS/ML IVP ONE (19:15)
[2020-05-18] MEDS ORDERED: LEVOFLOXACIN 500 MG/D5% WATER 100 ML IV ONE (19:15)
[2020-05-18] MEDS ORDERED: FUROSEMIDE 40 MG/4 ML VIAL IVP ONE (19:15)
[2020-05-18] MEDS ORDERED: LEVALBUTEROL HCL 0.63 MG/3 ML NEB SOLUTION NEB ONE (19:30)
[2020-05-18] MEDS ORDERED: DEXAMETHASONE SOD PHOS 4 MG/ML 5 ML VIAL IVP ONE (19:30)
[2020-05-18 20:20] VITALS: BP 136/81
== END 2020-05-18 20:38 | disposition left against medical advice (07) ==
LOC: EMS 17:09
DX: J18.9 Pneumonia, unspecified organism (principal); I11.0 Hypertensive heart disease with heart failure; I50.9 Heart failure, unspecified; F41.9 Anxiety disorder, unspecified; E11.9 Type 2 diabetes mellitus without complications; E78.00 Pure hypercholesterolemia, unspecified; F17.210 Nicotine dependence, cigarettes, uncomplicated; Z20.828 Contact with and (suspected) exposure to other viral communicable diseases; Z95.0 Presence of cardiac pacemaker; Z79.4 Long term (current) use of insulin; Z79.899 Other long term (current) drug therapy; Z79.84 Long term (current) use of oral hypoglycemic drugs
CPT/HCPCS: 36415; 71045; 80053; 82550; 82962; 83880; 84484; 85025; 87426; 93005; 94640; 96365; 96375; 99285; J1100; J1815; J1940; J1956; Z7610